=== PATIENT | male | born 1965 | race Caucasian/White ===

== ENCOUNTER 2021-11-10 11:39 | Outpatient (CLI) | payer OTHER ==
[2021-11-10] MEDS ORDERED: IOPAMIDOL-300 50 ML VIAL ONE (11:53)
[2021-11-10] MEDS ORDERED: IOVERSOL 320 100 ML VIAL IVP ONE ×2 (11:53→14:37)
[2021-11-10 12:20] LABS: CREATININE 0.6 mg/dL (0.6-1.2)
--- NOTE | 2021-11-10 17:08 | CT Report ---
PROCEDURE: CT abdomen and pelvis with contrast INDICATIONS: COLON CA CONTRAST: IV CONTRAST: Optiray 320 ml: 100 PO CONTRAST: Isovue 300 ml50 TECHNIQUE: After the administration of contrast, 5 mm thick sections acquired from the diaphragms to the sym physis. 5 mm thick coronal and sagittal reformats were acquired. For radiation dose reduction, the following was used: automated exposure control, adjustment of mA and/or kV according to patient size . COMPARISON: None. FINDINGS: Lower thorax: The lung bases are clear. Heart size normal. No hiatal hernia. Liver: Hepatic subcentimeter hypodensities in both hepatic lobes difficult to characterize by CT. Biliary system: No calcified cholelithiasis or pericholecystic inflammation. No evidence of bile du ct dilatation. Pancreas: Unremarkable without mass or inflammation evident. Spleen: Normal in size and density. Adrenals: Normal morphology and density. Reproductive system: Unremarkable as visualized. Urinary system: Normal renal size and attenuation. No renal calculi, hydronephrosis, or solid mass p resent. Urinary bladder unremarkable. 2 cm right renal cyst. Gastrointestinal system: Moderate to fecal debris throughout the colon. Colonic wall thickening at th e distal transverse colon on image 3/30 probably reflects peristalsis irregular rectal wall thickenin g noted as well. Appendix: No findings to suggest acute appendicitis. Peritoneal spaces: No mesenteric or retroperitoneal adenopathy. No free air. No free fluid. Vasculature: The IVC, aorta and iliac vasculature are unremarkable. Musculoskeletal: Normal bone mineralization. No acute fractures. Abdominal wall intact without aarti dence of ventral or inguinal hernias. IMPRESSION: 1. Moderate fecal debris throughout the colon. Probable focal peristalsis involving the distal transv erse colon, and rectal irregular wall thickening. Given the clinical history, either these locations could also represent neoplasm. Correlate with prior workup. 2. Subcentimeter hepatic hypodensities may reflect cysts. Also given the clinical history, underlying early metastatic disease not excluded. Consider follow-up dedicated hepatic protocol MRI Reviewed by: Stewart Francis MD on 11/10/2021 4:06 PM [place] Approved by: Stewart Francis MD on 11/10/2021 4:06 PM [facility] Station ID: [id number]
== END 2021-11-10 11:40 | disposition home or self-care (01) ==
LOC: LAB 11:39
PROVIDERS: ATTEND Internal Medicine Gastroenterology
DX: C18.9 Malignant neoplasm of colon, unspecified (principal); R93.3 Abnormal findings on diagnostic imaging of other parts of digestive tract; R93.2 Abnormal findings on diagnostic imaging of liver and biliary tract
CPT/HCPCS: 36415; 74177; 82565; 84520; Q9967

== ENCOUNTER 2021-11-19 13:01 | Outpatient (CLI) | payer OTHER ==
[2021-11-19] MEDS ORDERED: IOVERSOL 320 100 ML VIAL IVP ONE ×2 (13:14→17:16)
--- NOTE | 2021-11-19 17:32 | CT Report ---
PROCEDURE: CHEST W INDICATIONS: COLON CA CONTRAST: IV CONTRAST: Optiray 320 ml: 100 PO CONTRAST: *NO PO CONTRAST TECHNIQUE: After the administration of intravenous contrast, 1 mm axial images were acquired from the pulmonary apices through the posterior costophrenic angles. Axial 5 mm soft tissue kernel reconstructions were performed as well as 8 mm axial MIP and coronal and sagittal 5 mm reformations. For radiation dose reduction, the following was used: automated exposure control, adjustment of mA and/or kV according to patient size. COMPARISON: CT abdomen and pelvis with contrast, 11/10/2021. FINDINGS: Image quality: Excellent. Lungs and pleura: There is a 3 mm subsolid nodule in the right middle lobe just behind the minor fis sure (series 5 image 171). No acute air space opacities. No pleural effusions or pneumothorax. Cent ral and peripheral airways are patent and normal in caliber. Mediastinum: Heart size is normal. No pericardial effusion. Mild coronary artery calcification. No mediastinal or hilar adenopathy by size criteria. Thoracic aorta and central pulmonary arteries are normal in size. Esophagus is normal in caliber. No hiatal hernia. Bones and chest wall: No suspicious bony lesions. No vertebral body compression fractures. No axil floyd or supraclavicular adenopathy by size criteria. The thyroid is normal in size and there are no incidental findings.. Abdomen: There are multiple indeterminate low-density nodules seen liver. A 1.5 cm cyst is seen in t he superior pole of the right kidney. IMPRESSION: 1. A 3 mm solid nodule in the right middle lobe. In this patient with colon cancer, a -term follow-up CT is recommended in 3 months. 2. No lymphadenopathy in chest. 3. Multiple indeterminate nodules in liver. Please see the separate abdominal CT report dated 11/10/19 for detail. Reviewed by: Abram Patricio MD on 11/19/2021 5:16 PM PST Approved by: Abram Patricio MD on 11/19/2021 5:16 PM PST Station ID: [id number]
== END 2021-11-19 13:02 | disposition home or self-care (01) ==
LOC: DI 13:01
PROVIDERS: ATTEND Surgery
DX: C18.4 Malignant neoplasm of transverse colon (principal); R91.1 Solitary pulmonary nodule; K76.89 Other specified diseases of liver
CPT/HCPCS: 71260; Q9967

== ENCOUNTER 2021-11-21 10:12 | Outpatient (CLI) | payer OTHER ==
[2021-11-21] MEDS ORDERED: GADOBUTROL 10 MMOL/10 ML VIAL ONE (10:56)
--- NOTE | 2021-11-21 13:07 | MRI Report ---
PROCEDURE: Abdomen W/WO INDICATIONS: COLON CA CONTRAST: IV CONTRAST: Gadavist ml: 8.1 TECHNIQUE: Coronal ultra fast SE, axial 2D spoiled GE in- and [id number]; axial breath-hold T2 fast SE. Dynam ic axial ultra fast GE during the administration of contrast; post-contrast coronal ultra fast GE or 2D spoiled GE with fat saturation from the hepatic dome to the iliac crests. Optional diffusion weig hted imaging and ADC may be performed. COMPARISON: CT abdomen/pelvis 11/10/2021 FINDINGS: Image quality: Excellent. Lung bases: No basal pleural effusions. Heart size is normal. Solid organs: The liver is enlarged, measuring up to 23 cm in craniocaudal dimension. Very mild loss of T1 weighted signal seen on out of phase images, consistent with mild diffuse fatty infiltration. There is also a focal more pronounced fatty infiltration adjacent to the falciform ligament. Multiple small T2 hyperintense lesions are seen throughout the liver corresponding to the hypodensities seen on the prior CT from 11/10/2021. None of these lesions demonstrate postcontrast enhancement, consisten t with simple cysts. The largest is located within segment 8 and measures up to 1 cm in maximum dimen jessa. No solid hepatic mass is seen. Gallbladder contains a small amount of layering T1 hyperintense sludge. No gallstones or pericholecys tic inflammatory changes. Biliary system is non dilated. Pancreas is normal in morphology. Spleen is normal in size. No adrenal nodules. Both kidneys demonstrate normal size and enhancement, without hydronephrosis. A simple cyst is seen in the superior pole the right kidney. Nodes and vessels: No retroperitoneal or mesenteric adenopathy by size criteria. Aorta and inferior vena cava are normal in size. Bowel and peritoneum: Unenhanced bowel loops are normal in caliber. No free fluid. Bones and soft tissues: No ventral hernias. Bone marrow is normal in overall signal. IMPRESSION: 1.No enhancing hepatic mass. Previously seen hypodensities on CT are consistent with multiple small s imple hepatic cysts. 2.Hepatomegaly and mild diffuse hepatic steatosis. 3.No bulky lymphadenopathy in the upper abdomen. No enhancing osseous lesion. Reviewed by: Juno Barr MD on 11/21/2021 1:06 PM PST Approved by: Juno Barr MD on 11/21/2021 1:06 PM PST Station ID: [id number]
[2021-11-21] MEDS ORDERED: GADOBUTROL 10 MMOL/10 ML VIAL IVP ONE (14:19)
== END 2021-11-21 10:13 | disposition home or self-care (01) ==
LOC: DI 10:12
PROVIDERS: ATTEND Surgery
DX: C18.4 Malignant neoplasm of transverse colon (principal); K76.0 Fatty (change of) liver, not elsewhere classified; R16.0 Hepatomegaly, not elsewhere classified; R93.2 Abnormal findings on diagnostic imaging of liver and biliary tract
CPT/HCPCS: 74183; A9585

== ENCOUNTER 2022-02-06 15:44 | Outpatient (CLI) | payer OTHER ==
[2022-02-06] MEDS ORDERED: GADOBUTROL 7.5 MMOL/7.5 ML VIAL ONE (16:01)
[2022-02-07] MEDS ORDERED: GADOBUTROL 7.5 MMOL/7.5 ML VIAL IVP ONE (07:59)
--- NOTE | 2022-02-07 10:04 | MRI Report ---
PROCEDURE: Pelvis W/WO INDICATIONS: RECTAL ADENOCARCINOMA CONTRAST: IV CONTRAST: Gadavist ml: 7.5 TECHNIQUE: Coronal HASTE, sagittal T2 FSE, axial T1 FSE, axial and coronal nonbreath-hold T2 FSE. Axial dynamic VIBE during administration of contrast. Post-contrast axial and coronal VIBE/2-D FLASH with fat sat uration from the iliac crests to the symphysis. Optional diffusion weighted imaging and ADC may be p erformed. COMPARISON: MRI abdomen 11/21/2021, CT abdomen/pelvis 11/10/2021 FINDINGS: Image quality: Excellent. Rectum: Morphology: circumferential Clock face of tumor involvement: Predominantly posterior, 2:00 to 12:00, but with circumferential in volvement Mucinous (high T2 signal): Absent Craniocaudal length: 4.5 cm Distance to anal verge: Straddles Distance to top of sphincter complex/anorectal junction: Straddles Relationship to anterior peritoneal reflection: below Tumor at or below puborectalis sling: Present T staging: Depth of extramural invasion: Tumor extends through the posterior anal sphincter and likely the pubo rectalis muscle posteriorly with extraluminal mass seen in the ischiorectal fossa. No definite involv ement of the penile base is seen. The more superior intrapelvic portion of the tumor appears to be co nfined within the rectal wall. The tumor demonstrates intense diffusion restriction and decreased ADC values. Extramural vascular invasion: Not visualized. T3 tumors only: distance to mesorectal fascia (circumferential resection margin): Pelvic organ involvement: Genitourinary: No definite involvement. Pelvic sidewall (obturator internus, piriformis, ischiococcygeus muscles): Not involved Pelvic floor (pubococcygeus, iliococcygeus, puborectalis, levator plate): Puborectalis muscle likely involved posteriorly. Sacrum: Not involved Vessels (internal and external iliac arteries and veins): Not involved. No involvement of the pudend al neurovascular bundle is seen. Nerves (lumbosacral nerve roots): Not involved. Lymph nodes: Mildly prominent bilateral inguinal lymph nodes are seen measuring up to 1 cm in short axis diameter on the right (). Bilateral external iliac lymph nodes are seen measuring 1.2 cm in short axis bilaterally ( on the left and on the right). No significant mediastinal or rectal lymph node is seen. A right pelvic sidewall lymph node measures 0.7 cm in short axis diamet er, likely benign. There is a large volume of stool in the rectum and distal sigmoid colon. The bladder, prostate, and s eminal vesicles are unremarkable. Circumscribed lesion in the left iliac bone has nonaggressive featu res. No enhancing osseous mass identified. IMPRESSION: 1.Low rectal or anal malignancy is seen extending above and below the anorectal junction with involve ment of the posterior puborectalis muscle and posterior anal sphincter, extending into the ischiorect al space. 2.Indeterminant bilateral inguinal and external iliac lymph nodes measuring up to 1.2 cm in short axi s, which could represent berto metastatic disease depending upon the lymphatic drainage pathway of th e tumor. No significant mesorectal or internal iliac lymphadenopathy identified. Reviewed by: Juno Barr MD on 02/07/2022 10:03 AM PDT Approved by: Juno Barr MD on 02/07/2022 10:03 AM PDT Station ID: [id number]
== END 2022-02-06 15:45 | disposition home or self-care (01) ==
LOC: DI 15:44
PROVIDERS: ATTEND Surgery
DX: C20 Malignant neoplasm of rectum (principal); R59.0 Localized enlarged lymph nodes

== ENCOUNTER 2022-07-19 16:33 | Emergency (ER) | payer OTHER ==
--- NOTE | 2022-07-19 18:28 | ED Physician Documentation ---
PD HPI ABD PAIN - Stated complaint Stated Complaint: BOWEL DISCOMFORT - Chief complaint Chief Complaint: Abd Pain - History obtained from History obtained from: Patient, Family - History of Present Illness Timing - onset: Chronic Timing - details: Gradual onset Pain level max: 2 Pain level now: 2 Quality: Cramping, Dull Associated symptoms: Constipation. No: Fever, Nausea, Vomiting, Hematemesis, Diarrhea, Melena, Hematochezia, Dysuria, Hematuria - Additional information Additional information: 56-year-old male presents to the emergency department stating he has had constipation. Has a history of rectal cancer. He states he went to buy magnesium citrate at the store but they did not have any so he came here to see if we had magnesium citrate. He takes morphine and oxycodone at home for pain. No vomiting. No fevers. No chills. Nothing makes it better or worse. Review of Systems Constitutional: denies: Fever, Chills GI: denies: Vomiting, Diarrhea Skin: denies: Rash Musculoskeletal: denies: Neck pain, Back pain Neurologic: denies: Headache PD PAST MEDICAL HISTORY - Past Medical History Past Medical History: Yes GI: Other Other Past Medical History: colorectal cancer - Allergies Allergies/Adverse Reactions: Allergies Allergy/AdvReac Type Severity Reaction Status Date / Time No Known Drug Allergies Allergy Verified 07/19/22 16:43 - Social History Does the pt smoke?: No Smoking Status: Never smoker PD ED PE NORMAL - Vitals Vital signs reviewed: Yes - General General: Alert and oriented X 3, No acute distress, Well developed/nourished - HEENT HEENT: PERRL, Moist mucous membranes - Neck Neck: Supple, no meningeal sign - Cardiac Cardiac: RRR, Strong equal pulses - Respiratory Respiratory: No respiratory distress, Clear bilaterally - Abdomen Abdomen: Soft, Non tender, Non distended - Derm Derm: Warm and dry - Neuro Neuro: Alert and oriented X 3 - Psych Psych: Normal mood, Normal affect Results - Vitals Vitals: Vital Signs - 24 hr 07/19/22 07/19/22 16:38 18:44 Temperature 36.0 C L Heart Rate 99 104 H Respiratory 16 18 Rate Blood Pressure 120/96 H 123/96 H O2 Saturation 98 94 Oxygen O2 Source Room air PD MEDICAL DECISION MAKING - ED course Complexity details: considered differential, d/w patient, d/w family ED course: 56-year-old male with constipation likely secondary to opiate induced constipation. History of rectal cancer. He does not want any blood work today. There is a national recall currently of magnesium citrate. He has MiraLAX and other stool softeners at home. We did check to see if we had any relistor here, but we currently do not have any. Recommend that he talk to his doctor about opioid-induced constipation and medications for this. He did remember while he was here that he does have a bottle of magnesium citrate at home that he will try. Patient counseled regarding signs and symptoms for which I believe and urgent re-evaluation would be necessary. Patient with good understanding of and agreement to plan and is comfortable going home at this time This document was made in part using voice recognition software. While efforts are made to proofread this document, sound alike and grammatical errors may occur. Departure - Departure Disposition: 01 Home, Self Care Clinical Impression: Constipation Qualifiers: Constipation type: unspecified constipation type Qualified Code(s): K59.00 - Constipation, unspecified Condition: Good Instructions: ED Constipation Follow-Up: Christopher Shaw MD [Primary Care Provider] - Within 1 week Comments: Please follow up with your doctor for further care. Unfortunately there is a recall on magnesium citrate. You can ask your doctor about treatments for opiate indeced constipation. We unfortunately do not have relistor here today. Discharge Date/Time: 07/19/22 18:44
[2022-07-19 18:45] VITALS: BP 123/96
== END 2022-07-19 18:44 | disposition home or self-care (01) ==
LOC: ED 16:33
DX: K59.00 Constipation, unspecified (principal); Z85.048 Personal history of other malignant neoplasm of rectum, rectosigmoid junction, and anus
CPT/HCPCS: 99281; 99282

== ENCOUNTER 2022-09-25 12:29 | Outpatient (CLI) | payer OTHER ==
[~2022-09-25 12:29] MED LIST: GADOBUTROL 10 MMOL/10 ML VIAL ONE
--- NOTE | 2022-09-25 15:30 | MRI Report ---
PROCEDURE: PELVIS W/WO INDICATIONS: RECTAL CA TECHNIQUE: Rectal cancer protocol. Axial, coronal, and sagittal images were obtained of the pelvis wi th and without contrast using multiple sequences and multiple planes. COMPARISON: 02/06/2022 FINDINGS: Image quality: Good Rectum: Lower rectal tumor at the 3 to 9:00 position primarily with mostly fibrotic signal on today's study. The extra mural extent of disease is mostly fibrosis as well. As before, this extends to the region of the sphincter. On diffusion-weighted images, no confluent area of viable tumor is identifie d. No mucinous component. Craniocaudal length is about 2.6 cm, now mostly fibrosis. The fibrosis extends almost to the anal verge. The fibrosis at the low the peritoneal reflection. No definite viable extramural disease. No intramural venous invasion is visualized. Unremarkable appearance of the genitourinary structures, other pelvic sidewall structures, and other pelvic floor structures. No definite vascular or major nerve involvement. Lymph nodes: There are prominent lymph nodes bilateral external iliac chains, for example in the left measuring 9 mm. This was previously 11 mm. Moderate colorectal stool burden. Left iliac bone lesion again seen. The bones overall are heterogene ous, particularly on postcontrast imaging, indeterminate. No overtly suspicious lesions identified. A ttention on follow-up restaging study is suggested. IMPRESSION: Lower rectal tumor with extramural extension as seen on prior MRI, now with mostly fibrotic signal in dicating treatment response, involving the puborectalis sling. Borderline enlarged pelvic lymph nodes are indeterminate and should be followed on subsequent imaging . Other findings as above. Reviewed by: Noe Alfred MD on 09/25/2022 3:29 PM PST Approved by: Noe Alfred MD on 09/25/2022 3:29 PM PST Station ID: [id number]
[2022-09-25] MEDS ORDERED: GADOBUTROL 10 MMOL/10 ML VIAL IVP ONE (15:43)
== END 2022-09-25 12:30 | disposition home or self-care (01) ==
LOC: DI 12:29
PROVIDERS: ATTEND Internal Medicine
DX: C20 Malignant neoplasm of rectum (principal)
CPT/HCPCS: 72197; A9585

== ENCOUNTER 2023-03-31 13:49 | Outpatient (CLI) | payer OTHER ==
[2023-03-31] MEDS ORDERED: iohexoL-300 100 ML VIAL ONE (14:09)
[2023-03-31] MEDS ORDERED: DIATRIZOATE MEGLU/DIATRIZO SOD 30 ML BOTTLE PO ONE (15:25)
[2023-03-31] MEDS ORDERED: iohexoL-300 100 ML VIAL IVP ONE (15:25)
--- NOTE | 2023-04-01 13:54 | CT Report ---
PROCEDURE: CHEST W INDICATIONS: RECTAL CA CONTRAST: 100ml Omnipaque 300 TECHNIQUE: After the administration of intravenous contrast, 1 mm axial images were acquired from the pulmonary apices through the posterior costophrenic angles. Axial 5 mm soft tissue kernel reconstructions were performed as well as 8 mm axial MIP and coronal and sagittal 5 mm reformations. For radiation dose reduction, the following was used: automated exposure control, adjustment of mA and/or kV according to patient size. COMPARISON: CT chest 11/19/2021 FINDINGS: Medical devices: Right chest port present with tip of the catheter terminating at the lower SVC. Lymph nodes: No highly suspicious lymph nodes visualized. Vasculature: Aorta and main pulmonary artery diameters are within normal range. Heart: No pericardial effusion. Lung parenchyma and pleura: No consolidation, pleural effusion, or pneumothorax. Previously indexed 2 -3 mm right middle lobe fissural nodule (3/188) is unchanged, likely an intrapulmonary lymph node. Chest wall/musculoskeletal: Multilevel degenerative change of the visualized spine. Visualized upper abdomen: Dictated separately. IMPRESSION: 1. No definite evidence of thoracic metastatic disease identified. 2. Same-day CT of the abdomen and pelvis is dictated separately. Reviewed by: Juno Angeles MD on 04/01/2023 1:53 PM PDT Approved by: Juno Angeles MD on 04/01/2023 1:53 PM PDT Station ID: [id number]
--- NOTE | 2023-04-01 14:23 | CT Report ---
PROCEDURE: ABDOMEN/PELVIS W INDICATIONS: RECTAL CA CONTRAST: 100ml Omnipaque 300 TECHNIQUE: After the administration of oral and intravenous contrast, 5 mm thick sections acquired from the diap hragms to the symphysis. 5 mm thick coronal and sagittal reformats were acquired. For radiation dos e reduction, the following was used: automated exposure control, adjustment of mA and/or kV accordin g to patient size. COMPARISON: MR pelvis 09/25/2022, MR abdomen 11/21/2021, CT abdomen pelvis 11/10/2021. FINDINGS: Visualized lung bases: Dictated separately. Liver and biliary tree: Few tiny hepatic hypodensities present likely cysts as seen on prior MR abdom en. Several previously visualized cysts are not clearly identified on the current study, unclear if t his is technical related to differences in contrast bolus timing. No definite suspicious liver lesion identified. No biliary ductal dilation demonstrated. Gallbladder: Multiple stones are present. Spleen: Unremarkable. Pancreas: No main ductal dilation. Adrenal glands: Unremarkable. Kidneys and ureters: No hydronephrosis. Right kidney cortical cyst present as before. Gastrointestinal tract: Postsurgical changes of the GI tract, apparent prior APR and left abdominal e nd colostomy, and proximal colonic resection with ileocolonic anastomosis. No evidence of mechanical small bowel obstruction. Peritoneal cavity/extraperitoneal spaces: Presacral soft tissue thickening and/or fluid, likely postt reatment change. No pneumoperitoneum or substantial peritoneal free fluid. Bladder: Unremarkable. Pelvic organs: Unremarkable CT appearance. Vasculature: No abdominal aortic aneurysm. Lymph nodes: No highly suspicious lymph nodes visualized. Musculoskeletal: Degenerative change of the spine. IMPRESSION: 1. Postsurgical/posttreatment changes of the abdomen and pelvis. No definitive evidence of metastatic disease identified. This exam can serve as a baseline for future follow-up studies. 2. Cholelithiasis. 3. Same-day CT of the chest is dictated separately. Reviewed by: Juno Angeles MD on 04/01/2023 2:21 PM PDT Approved by: Juno Angeles MD on 04/01/2023 2:21 PM PDT Station ID: [id number]
== END 2023-03-31 13:50 | disposition home or self-care (01) ==
LOC: DI 13:49
PROVIDERS: ATTEND Surgery
DX: C20 Malignant neoplasm of rectum (principal); K80.20 Calculus of gallbladder without cholecystitis without obstruction
CPT/HCPCS: 71260; 74177; Q9963; Q9967

== ENCOUNTER 2023-09-02 08:52 | Outpatient (CLI) | payer OTHER ==
[2023-09-02] MEDS ORDERED: DIATR MEGLU/DIATRIZOATE SODIUM 120 ML BOTTLE ONE (08:58)
[2023-09-02] MEDS ORDERED: iohexoL-300 100 ML VIAL IVP ONE (10:32)
[2023-09-02] MEDS ORDERED: DIATRIZOATE MEGLU/DIATRIZO SOD 30 ML BOTTLE PO ONE (10:33)
--- NOTE | 2023-09-02 12:41 | CT Report ---
PROCEDURE: ABDOMEN/PELVIS W INDICATIONS: COLORECTAL CA CONTRAST: Omni 300 100ml TECHNIQUE: After the administration of intravenous contrast, 5 mm thick sections acquired from the diaphragms to the symphysis. 5 mm thick coronal and sagittal reformats were acquired. For radiation dose reducti on, the following was used: automated exposure control, adjustment of mA and/or kV according to gilmer ent size. COMPARISON: CT 03/31/2023 FINDINGS: Image quality: Excellent. Lung bases and heart: Please see same day chest CT for further discussion. Liver: Subcentimeter hypoattenuating liver lesions, too small to characterize by CT. Focal fat adjace nt to the falciform ligament. Gallbladder and biliary tree: Cholelithiasis without wall thickening. No biliary dilation. Spleen: No splenomegaly. Pancreas: No pancreatic ductal dilation. Adrenals: No adrenal nodule. Kidneys and ureters: No hydronephrosis. No renal cystic lesion which requires follow up. No solid mas s. Bowel and peritoneum: Prior hemicolectomy and proctectomy. Left lower quadrant colostomy. Stable pres acral soft tissue attenuation, presumably posttreatment change. Lymph nodes: No central or retroperitoneal adenopathy. Vessels: No infrarenal aortic aneurysm. PELVIS Reproductive organs: Unremarkable. Bladder: No abnormal wall thickening, accounting for underdistension. Pelvic lymph nodes: No pelvic adenopathy by size criteria. Bones: No aggressive osseous abnormality. Stable well-defined bony lesion in the left hemipelvis, wit h a dense sclerotic rim and homogeneous internal groundglass. Other: No significant ventral or inguinal hernia. Diastases rectae. IMPRESSION: Prior hemicolectomy and proctectomy, without evidence of local recurrence or metastatic disease. Reviewed by: Dat Carrillo on 09/02/2023 11:40 AM [facility] Approved by: Dat Carrillo on 09/02/2023 11:40 AM [facility] Station ID: [id number]
--- NOTE | 2023-09-02 12:44 | CT Report ---
PROCEDURE: CHEST W INDICATIONS: COLORECTAL CA CONTRAST: Omni 300 100ml TECHNIQUE: After the administration of intravenous contrast, 1 mm axial images were acquired from the pulmonary apices through the posterior costophrenic angles. Axial 5 mm soft tissue kernel reconstructions were performed as well as 8 mm axial MIP and coronal and sagittal 5 mm reformations. For radiation dose reduction, the following was used: automated exposure control, adjustment of mA and/or kV according to patient size. COMPARISON: CT 03/31/2023 FINDINGS: Image quality: Excellent. Lungs and pleura: No consolidation. No pleural effusions. No pneumothorax. No suspicious pulmonary n odules which require follow up. Mild paraseptal emphysema. Mediastinum: Heart size is normal. No pericardial effusion. No large vessel abnormality. No mediastin al adenopathy by size criteria. Marked coronary calcifications for age. Chest wall and lower neck: Thyroid is unremarkable. No axillary or supraclavicular adenopathy by size . Bones: No aggressive osseous abnormality. Upper Abdomen: Please see same day dedicated abdominal exam. IMPRESSION: No evidence metastatic disease. Marked coronary artery calcifications for age. Consider cardiology referral. Reviewed by: Dat Carrillo on 09/02/2023 11:42 AM [facility] Approved by: Dat Carrillo on 09/02/2023 11:42 AM [facility] Station ID: [id number]
== END 2023-09-02 08:53 | disposition home or self-care (01) ==
LOC: DI 08:52
PROVIDERS: ATTEND Internal Medicine
DX: C20 Malignant neoplasm of rectum (principal); C18.4 Malignant neoplasm of transverse colon; I25.10 Atherosclerotic heart disease of native coronary artery without angina pectoris
CPT/HCPCS: 71260; 74177; Q9963; Q9967